=== PATIENT | female | born 1985 | race Caucasian/White ===

== ENCOUNTER 2020-06-05 13:32 | Emergency (ER) | payer MEDICAID ==
[~2020-06-05] VITALS: Ht 170.2 cm; Wt 92.3 kg
[2020-06-05 13:43] VITALS: BP 127/90
[2020-06-05] MEDS ORDERED: PENI500T2 PO (14:19)
[2020-06-05] MEDS ORDERED: HYDROcodone/acetaminophen 5mg/325mg tablet PO ONE (14:20)
== END 2020-06-05 14:48 | disposition home or self-care (01) ==
LOC: ER 13:32
DX: K08.89 Other specified disorders of teeth and supporting structures (principal); H92.01 Otalgia, right ear; Z79.899 Other long term (current) drug therapy
CPT/HCPCS: 99283